=== PATIENT | male | born 1965 | race Two or more races ===

== ENCOUNTER 2017-08-22 04:51 | Emergency (ER) | payer OTHER | END 2017-08-22 05:39 | disposition home or self-care (01) | LOC: ER 04:51 | DX: H61.22 Impacted cerumen, left ear (principal); I10 Essential (primary) hypertension | CPT/HCPCS: 69209; 99282 ==

== ENCOUNTER 2018-03-01 20:17 | Inpatient (IN) | payer OTHER ==
[~2018-03-01] VITALS: Ht 175.3 cm; Wt 83.9 kg
[2018-03-01 21:03] LABS: BASO # 0.1 x10^3/uL (0.0-0.2); BASO % 1 % (0-3); EOS # 0.2 x10^3/uL (0.0-0.7); EOS % 2 % (0-3); HEMATOCRIT 41.8 % (39.0-53.0); HEMOGLOBIN 14.5 g/dL (13.0-17.5); LYMPH # 4.1 x10^3/uL (1.0-4.8); LYMPH % 49 % (24-48); MEAN CORPUSCULAR HEMOGLOBIN 32 pg (25-35); MEAN CORPUSCULAR HGB CONC 35 g/dL (31-37); MEAN CORPUSCULAR VOLUME 92 fL (79-100); MONO # 0.5 x10^3/uL (0.0-1.1); MONO % 6 % (0-9); NEUT # 3.4 x10^3uL (1.8-7.7); NEUT % 42 % (31-73); PLATELET COUNT 204 x10^3/uL (140-400); RED BLOOD COUNT 4.55 x10^6/uL (4.30-5.70); RED CELL DISTRIBUTION WIDTH 12.8 % (11.5-14.5); WHITE BLOOD COUNT 8.2 x10^3/uL (4.0-11.0)
--- NOTE | 2018-03-01 21:13 | PHYS DOC ---
Past Medical History Past Medical History: CAD, High Cholesterol, Hypertension Additional Past Surgical Histo: one stent placement 5 years ago Alcohol Use: Occasionally Drug Use: None Adult General Chief Complaint Chief Complaint: ALTERED MENTAL STATUS HPI HPI Patient is a 52 year old male who presents with difficulty with gait. Patient states he has been having some difficulty with ambulation over the last 4 days. He does not complain of focal weakness but does complain that it is difficult for him to walk and he tends to drift to one direction or the other while walking. He also describes some vertiginous symptoms. He noticed earlier today that he was having some memory difficulties. He was looking at some pictures with his daughter and seemed somehow confused or cannot remember events related to the photographs. Patient does have a known coronary artery disease history. He has not had a fever or chills. He does not have chest pain or palpitations. He denies focal weakness. He has had no upper respiratory infection lately. No recent travel. Review of Systems Review of Systems Constitutional: Denies fever or chills Eyes: Denies change in visual acuity HENT: Denies nasal congestion Respiratory: Denies cough or shortness of breath Cardiovascular: No additional information GI: Denies abdominal pain, nausea, vomiting : Denies dysuria Musculoskeletal: Denies back pain Integument: Denies rash or skin lesions Neurologic: Denies headache or focal weakness All other systems were reviewed and found to be within normal limits, except as documented in this note. Current Medications Current Medications Current Medications Medications (Trade) Dose Ordered Sig/Tarah Start Time Stop Time Status Last Admin Dose Admin Info (CONTRAST GIVEN -- Rx MONITORING) 1 each PRN DAILY PRN 03/01/18 22:30 03/03/18 22:29 Iohexol (Omnipaque 300 Mg/ml) 75 ml 1X ONCE 03/01/18 22:30 03/01/18 22:31 DC 03/01/18 22:44 75 ML Allergies Allergies Allergies Coded Allergies Type Severity Reaction Last Updated Verified No Known Drug Allergies 03/01/18 No Physical Exam Physical Exam Constitutional: Well developed, well nourished, no acute distress, non-toxic appearance HENT: Normocephalic, atraumatic, bilateral external ears normal, oropharynx moist Eyes: PERRLA, EOMI, conjunctiva normal, no discharge Neck: Normal range of motion, no tenderness, supple Cardiovascular:Heart rate regular rhythm, no murmur Lungs & Thorax: Bilateral breath sounds clear to auscultation Abdomen: Bowel sounds normal, soft, no tenderness Skin: Warm, dry, no erythema, no rash Extremities: No tenderness, no cyanosis, no clubbing Neurologic: Alert and oriented X 3, normal motor function, [id number] intact. EOMI without nystagmus. Psychologic: Affect normal Current Patient Data Vital Signs Vital Signs Date Time Temp Pulse Resp B/P (MAP) Pulse Ox O2 Delivery O2 Flow Rate FiO2 03/01/18 22:00 63 20 96 03/01/18 20:35 98.0 146/96 (113) Room Air 98.0 Lab Values Laboratory Tests Test 03/01/18 20:22 03/01/18 20:55 03/01/18 22:00 Glucose (Fingerstick) 95 mg/dL (70-99) White Blood Count 8.2 x10^3/uL (4.0-11.0) Red Blood Count 4.55 x10^6/uL (4.30-5.70) Hemoglobin 14.5 g/dL (13.0-17.5) Hematocrit 41.8 % (39.0-53.0) Mean Corpuscular Volume 92 fL (79-100) Mean Corpuscular Hemoglobin 32 pg (25-35) Mean Corpuscular Hemoglobin Concent 35 g/dL (31-37) Red Cell Distribution Width 12.8 % (11.5-14.5) Platelet Count 204 x10^3/uL (140-400) Neutrophils (%) (Auto) 42 % (31-73) Lymphocytes (%) (Auto) 49 % (24-48) H Monocytes (%) (Auto) 6 % (0-9) Eosinophils (%) (Auto) 2 % (0-3) Basophils (%) (Auto) 1 % (0-3) Neutrophils # (Auto) 3.4 x10^3uL (1.8-7.7) Lymphocytes # (Auto) 4.1 x10^3/uL (1.0-4.8) Monocytes # (Auto) 0.5 x10^3/uL (0.0-1.1) Eosinophils # (Auto) 0.2 x10^3/uL (0.0-0.7) Basophils # (Auto) 0.1 x10^3/uL (0.0-0.2) Prothrombin Time 13.5 SEC (11.7-14.0) Prothrombin Time INR 1.1 (0.8-1.1) PTT 34 SEC (24-38) Sodium Level 137 mmol/L (136-145) Potassium Level 3.8 mmol/L (3.5-5.1) Chloride Level 100 mmol/L (98-107) Carbon Dioxide Level 29 mmol/L (21-32) Anion Gap 8 (6-14) Blood Urea Nitrogen 17 mg/dL (8-26) Creatinine 1.0 mg/dL (0.7-1.3) Estimated GFR (Cockcroft-Gault) 78.2 Glucose Level 105 mg/dL (70-99) H Calcium Level 9.1 mg/dL (8.5-10.1) Troponin I Quantitative < 0.017 ng/mL (0.000-0.055) ZI-Xiy-E-Type Natriuretic Peptide 27 pg/mL (0-124) Urine Collection Type Unknown Urine Color Yellow Urine Clarity Clear Urine pH 6.5 Urine Specific [place] 1.015 Urine Protein Negative mg/dL (NEG-TRACE) Urine Glucose (UA) Negative mg/dL (NEG) Urine Ketones (Stick) Negative mg/dL (NEG) Urine Blood Trace (NEG) Urine Nitrite Negative (NEG) Urine Bilirubin Negative (NEG) Urine Urobilinogen Dipstick 0.2 mg/dL (0.2 mg/dL) Urine Leukocyte Esterase Negative (NEG) Urine RBC 1-2 /HPF (0-2) Urine WBC Occ /HPF (0-4) Urine Squamous Epithelial Cells Occ /LPF Urine Bacteria 0 /HPF (0-FEW) Laboratory Tests 03/01/18 20:55 Laboratory Tests 03/01/18 20:55 EKG EKG No STEMI Interpretation Time: 20:45 Radiology/Procedures Radiology/Procedures CTA head/neck: History: TIA Technique: Axial helical images were obtained of the head and neck after the intravenous administration of 75 mL of Omni 300 IV contrast. Multiplanar reconstruction was performed on an independent work station including MIP imaging and 3D angiographic imaging. Comparison: none CTA head with and without contrast. Findings: Brain: The carson and white matter appears symmetrical. There is no mass effect, extra-axial fluid collections or hydrocephalus. There is no gross bleed. Distal carotid arteries: normal caliber Vertebral basilar system normal Major cerebral arteries: normal Impression: no acute findings end impression CTA neck with contrast: Findings: Aortic arch and origin of great vessels: The right-sided artery originates after the left subclavian artery and passes posterior to the trachea and esophagus. The common carotid ovaries arise from a common trunk. Common carotid arteries: Right: normal Left: normal Internal carotid arteries: Right: Tortuous swinging towards the midline Left: normal Vertebral basilar system normal Impression: No significant stenosis. CT head w/o: No acute findings. Course & Med Decision Making Course & Med Decision Making Pertinent Labs and Imaging studies reviewed. (See chart for details) Patient was evaluated in the emergency department for some complaints. 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 The patient states he has had periods of time when he was unable to ambulate due to loss of balance. This includes at periods, unable to stand still. He does not complain of focal weakness. He had no nystagmus on exam and has no vertiginous symptoms. Workup in the ER including CT scan without contrast and CT angiography of the head and neck were both negative for acute findings. The patient seems to be a very reliable historian. His medication profile consistent only of atorvastatin and amlodipine. He does not smoke or use any illicit drugs. The source of his symptoms is unclear given his negative workup in the emergency department. Patient will be admitted to the hospital and neurology consultation requested. MRI at their recommendation if indicated for this patient. Thyroid studies are added to his lab panel along with B12 and folate. Prior to admission, all results are reviewed and discussed with the patient and all of his questions are answered. He is agreeable to the plan of care. I spoke to Dr. Garcia who is covering this evening for Dr. Fernandes. Patient is admitted to Dr. Fernandes. Dragon Disclaimer Dragon Disclaimer This electronic medical record was generated, in whole or in part, using a voice recognition dictation system. Departure Departure Referrals: JANE FERNANDES MD (PCP) DISHA NORRIS DO Mar 01, 2018 21:13
[2018-03-01 21:14] LABS: PROTHROMBIN TIME PATIENT 13.5 SEC (11.7-14.0)
[2018-03-01 21:17] LABS: CALCIUM 9.1 mg/dL (8.5-10.1); GFR 78.2; POTASSIUM 3.8 mmol/L (3.5-5.1)
--- NOTE | 2018-03-01 22:09 | RAD ---
Examination: CT HEAD WO CONTRAST History: loss of balance x 4 days Comparison/Correlation: None Findings: Topogram is unremarkable. Axial images of the head were obtained without contrast. Ventricles are normal size. No intracranial hemorrhage, midline shift, or mass effect. Bony structures are unremarkable. Impression: No intracranial hemorrhage. Electronically signed by: Pan Corrales MD (03/01/2018 10:06 PM) [facility]
[2018-03-01 22:11] LABS: BILIRUBIN,URINE NEGATIVE (NEG); CLARITY,URINE CLEAR; COLOR,URINE YELLOW; NITRITE,URINE NEGATIVE (NEG); PH,URINE 6.5; PROTEIN,URINE NEGATIVE (NEG-TRACE); UROBILINOGEN,URINE 0.2 mg/dL (0.2 mg/dL)
[2018-03-01 22:19] LABS: BACTERIA,URINE 0 /HPF (0-FEW); SQUAMOUS EPITHELIAL CELL,UR OCC /LPF; WBC,URINE OCC /HPF (0-4)
[2018-03-01] MEDS ORDERED: IOHEXOL 300 MG/ML 100ML VIAL. IV ONE (22:30)
[2018-03-01] MEDS ORDERED: CONTRAST GIVEN. MC PRN (22:30)
--- NOTE | 2018-03-01 23:34 | RAD ---
CTA head with and without and CTA neck with contrast History: TIA Technique: Axial helical images were obtained of the head and neck after the intravenous administration of 75 mL of Omni 300 IV contrast. Multiplanar reconstruction was performed on an independent work station including MIP imaging and 3D angiographic imaging. Comparison: none CTA head with and without contrast. Findings: Brain: The carson and white matter appears symmetrical. There is no mass effect, extra-axial fluid collections or hydrocephalus. There is no gross bleed. Distal carotid arteries: normal caliber Vertebral basilar system normal Major cerebral arteries: normal Impression: no acute findings end impression CTA neck with contrast: Findings: Aortic arch and origin of great vessels: The right-sided artery originates after the left subclavian artery and passes posterior to the trachea and esophagus. The common carotid ovaries arise from a common trunk. Common carotid arteries: Right: normal Left: normal Internal carotid arteries: Right: Tortuous swinging towards the midline Left: normal Vertebral basilar system normal Impression: No significant stenosis. PQRS Compliance Statement - Stenosis calculations for CT, MR and conventional angiography are based upon measurement of the distal ICA diameter in accordance with the NASCET methodology. Stenosis calculations for carotid ultrasound studies are derived from validated velocity criteria which are known to correlate with the NASCET methodology. PQRS Compliance Statement: One or more of the following individualized dose reduction techniques were utilized for this examination: 1. Automated exposure control 2. Adjustment of the mA and/or kV according to patient size 3. Use of iterative reconstruction technique Electronically signed by: Juan Carlos Lara III, MD (03/01/2018 11:31 PM) [facility]
[2018-03-02] MEDS ORDERED: ONDANSETRON PF 4 MG/2 ML VIAL. IV PRN (01:00)
[2018-03-02] MEDS ORDERED: ACETAMINOPHEN 325 MG TABLET. PO PRN ×2 (01:00→14:30)
[2018-03-02] MEDS ORDERED: ATOR20TA58 PO (02:05)
[2018-03-02] MEDS ORDERED: AMLO5TAB7 PO (02:05)
[2018-03-02 03:00] VITALS: BP 128/86
[2018-03-02] MEDS ORDERED: IOHEXOL 300 MG/ML 100ML VIAL. ONE (03:02)
[2018-03-02 03:26] LABS: FREE T4 1.14 ng/dL (0.76-1.46); THYROID STIM HORMONE (TSH) 2.928 uIU/mL (0.358-3.74)
[2018-03-02 07:00] VITALS: BP 141/111
--- NOTE | 2018-03-02 07:00 | EKG ---
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
--- NOTE | 2018-03-02 08:54 | PDOC2 ---
NEUROLOGY CONSULT Date of Admission Date of Admission DATE: 03/02/18 TIME: 08:47 Reason for Consult Reason for Consult: Dizziness and memory loss Referring Physician Referring Physician: Dr. Galvez Source Source: Caregiver (), Chart review, Patient History of Present Illness History of Present Illness The patient is a 52-year-old right-handed male who for the past week has had some dizziness and memory loss. He describes a disequilibrium feeling and denies vertigo or lightheadedness. He just feels unsteady on his feet. His says that he has been "walking like an old man." He also forgets conversations and feels like he is more confused. He has noted that his blood pressure has been up. There is no history of stroke, seizure, or head injury. His father had Alzheimer's. Past Medical History Cardiovascular: CAD, HTN, Hyperlipidemia Past Surgical History Past Surgical History: Other ( coronary stent) Family History Family History: Other ( father had Alzheimer's) Social History Social History , works in construction, no alcohol or tobacco Current Medications Current Medications Current Medications Iohexol (Omnipaque 300 Mg/ml) 75 ml 1X ONCE IV Last administered on 03/01/18at 22:44; Start 03/01/18 at 22:30; Stop 03/01/18 at 22:31; Status DC Info (CONTRAST GIVEN -- Rx MONITORING) 1 each PRN DAILY PRN MC SEE COMMENTS; Start 03/01/18 at 22:30; Stop 03/03/18 at 22:29 Ondansetron HCl (Zofran) 4 mg PRN Q8HRS PRN IV NAUSEA/VOMITING; Start 03/02/18 at 01:00; Stop 03/03/18 at 00:59 Acetaminophen (Tylenol) 650 mg PRN Q4HRS PRN PO FEVER; Start 03/02/18 at 01:00 ; Stop 03/03/18 at 00:59 Influenza Virus Vaccine (Afluria Trivalent [id number] Syringe) 0.5 ml ONCE ONCE VAX IM ; Start 03/02/18 at 09:00; Stop 03/02/18 at 09:01 Iohexol (Omnipaque 300 Mg/ml) 100 ml STK-MED ONCE .ROUTE ; Start 03/02/18 at 03: 02; Stop 03/02/18 at 03:03; Status DC Active Scripts Active Reported Atorvastatin Calcium 20 Mg Tablet 1 Tab PO DAILY Amlodipine Besylate 5 Mg Tablet 5 Mg PO DAILY Allergies Allergies: Coded Allergies: No Known Drug Allergies (Unverified , 03/01/18) ROS Review of System Negative for fevers, chills, weight loss, shortness of breath, chest pain, indigestion, hematochezia, melena, dysuria. Full 14-point review systems is negative. Physical Exam Physical Examination General: Well-developed, well-nourished, male, in no acute distress HEENT: Normocephalic andatraumatic. Temporal arteriespulsatile and nontender. Neck: Supple without bruit, no meningismus Musculoskeletal: Stability:see neurologic. Gait exam:see neurologic. Tone:see neurologic. Strength:see neurologic. Neurological: Mental Status:intact, orientation, memory, attention span/concentration, language, fund of knowledge normal. Cranial Nerves:Pupils equal and reactive to light, extraocular movements areintact, visual [place] are full to confrontation. Facial sensation is normal. There is no facial asymmetry. Vestibulo-ocular reflex is intact. Palate elevates and tongue protrudes in midline. All other cranial related problems are negative except as mentioned before.Reflexes:2+ and symmetric with flexor plantar responses. Motor:5/5 strength with normal tone and bulk. Coordination:Finger-nose finger and heel-to -franco testing are normal. Rapid alternating movements and fine finger movements are intact. Gait:is apraxic. Sensory:Normal pinprick, vibration, light touch, proprioception. Vitals VITALS Vital Signs Date Time Temp Pulse Resp B/P (MAP) Pulse Ox O2 Delivery O2 Flow Rate FiO2 03/02/18 07:00 98.4 71 16 141/111 (121) 93 Room Air 98.4 Labs Labs Laboratory Tests Test 03/01/18 20:22 03/01/18 20:55 03/01/18 22:00 Glucose (Fingerstick) 95 mg/dL (70-99) White Blood Count 8.2 x10^3/uL (4.0-11.0) Red Blood Count 4.55 x10^6/uL (4.30-5.70) Hemoglobin 14.5 g/dL (13.0-17.5) Hematocrit 41.8 % (39.0-53.0) Mean Corpuscular Volume 92 fL (79-100) Mean Corpuscular Hemoglobin 32 pg (25-35) Mean Corpuscular Hemoglobin Concent 35 g/dL (31-37) Red Cell Distribution Width 12.8 % (11.5-14.5) Platelet Count 204 x10^3/uL (140-400) Neutrophils (%) (Auto) 42 % (31-73) Lymphocytes (%) (Auto) 49 % (24-48) Monocytes (%) (Auto) 6 % (0-9) Eosinophils (%) (Auto) 2 % (0-3) Basophils (%) (Auto) 1 % (0-3) Neutrophils # (Auto) 3.4 x10^3uL (1.8-7.7) Lymphocytes # (Auto) 4.1 x10^3/uL (1.0-4.8) Monocytes # (Auto) 0.5 x10^3/uL (0.0-1.1) Eosinophils # (Auto) 0.2 x10^3/uL (0.0-0.7) Basophils # (Auto) 0.1 x10^3/uL (0.0-0.2) Prothrombin Time 13.5 SEC (11.7-14.0) Prothromb Time International Ratio 1.1 (0.8-1.1) Activated Partial Thromboplast Time 34 SEC (24-38) Sodium Level 137 mmol/L (136-145) Potassium Level 3.8 mmol/L (3.5-5.1) Chloride Level 100 mmol/L (98-107) Carbon Dioxide Level 29 mmol/L (21-32) Anion Gap 8 (6-14) Blood Urea Nitrogen 17 mg/dL (8-26) Creatinine 1.0 mg/dL (0.7-1.3) Estimated GFR (Cockcroft-Gault) 78.2 Glucose Level 105 mg/dL (70-99) Calcium Level 9.1 mg/dL (8.5-10.1) Troponin I Quantitative < 0.017 ng/mL (0.000-0.055) IQ-Ylm-Y-Type Natriuretic Peptide 27 pg/mL (0-124) Vitamin B12 Level 386 pg/mL (247-911) Thyroid Stimulating Hormone (TSH) 2.928 uIU/mL (0.358-3.74) Free Thyroxine 1.14 ng/dL (0.76-1.46) Urine Collection Type Unknown Urine Color Yellow Urine Clarity Clear Urine pH 6.5 Urine Specific [place] 1.015 Urine Protein Negative mg/dL (NEG-TRACE) Urine Glucose (UA) Negative mg/dL (NEG) Urine Ketones (Stick) Negative mg/dL (NEG) Urine Blood Trace (NEG) Urine Nitrite Negative (NEG) Urine Bilirubin Negative (NEG) Urine Urobilinogen Dipstick 0.2 mg/dL (0.2 mg/dL) Urine Leukocyte Esterase Negative (NEG) Urine RBC 1-2 /HPF (0-2) Urine WBC Occ /HPF (0-4) Urine Squamous Epithelial Cells Occ /LPF Urine Bacteria 0 /HPF (0-FEW) Laboratory Tests Test 03/01/18 20:22 03/01/18 20:55 03/01/18 22:00 Glucose (Fingerstick) 95 mg/dL (70-99) White Blood Count 8.2 x10^3/uL (4.0-11.0) Red Blood Count 4.55 x10^6/uL (4.30-5.70) Hemoglobin 14.5 g/dL (13.0-17.5) Hematocrit 41.8 % (39.0-53.0) Mean Corpuscular Volume 92 fL (79-100) Mean Corpuscular Hemoglobin 32 pg (25-35) Mean Corpuscular Hemoglobin Concent 35 g/dL (31-37) Red Cell Distribution Width 12.8 % (11.5-14.5) Platelet Count 204 x10^3/uL (140-400) Neutrophils (%) (Auto) 42 % (31-73) Lymphocytes (%) (Auto) 49 % (24-48) Monocytes (%) (Auto) 6 % (0-9) Eosinophils (%) (Auto) 2 % (0-3) Basophils (%) (Auto) 1 % (0-3) Neutrophils # (Auto) 3.4 x10^3uL (1.8-7.7) Lymphocytes # (Auto) 4.1 x10^3/uL (1.0-4.8) Monocytes # (Auto) 0.5 x10^3/uL (0.0-1.1) Eosinophils # (Auto) 0.2 x10^3/uL (0.0-0.7) Basophils # (Auto) 0.1 x10^3/uL (0.0-0.2) Prothrombin Time 13.5 SEC (11.7-14.0) Prothromb Time International Ratio 1.1 (0.8-1.1) Activated Partial Thromboplast Time 34 SEC (24-38) Sodium Level 137 mmol/L (136-145) Potassium Level 3.8 mmol/L (3.5-5.1) Chloride Level 100 mmol/L (98-107) Carbon Dioxide Level 29 mmol/L (21-32) Anion Gap 8 (6-14) Blood Urea Nitrogen 17 mg/dL (8-26) Creatinine 1.0 mg/dL (0.7-1.3) Estimated GFR (Cockcroft-Gault) 78.2 Glucose Level 105 mg/dL (70-99) Calcium Level 9.1 mg/dL (8.5-10.1) Troponin I Quantitative < 0.017 ng/mL (0.000-0.055) EV-Qjl-U-Type Natriuretic Peptide 27 pg/mL (0-124) Vitamin B12 Level 386 pg/mL (247-911) Thyroid Stimulating Hormone (TSH) 2.928 uIU/mL (0.358-3.74) Free Thyroxine 1.14 ng/dL (0.76-1.46) Urine Collection Type Unknown Urine Color Yellow Urine Clarity Clear Urine pH 6.5 Urine Specific [place] 1.015 Urine Protein Negative mg/dL (NEG-TRACE) Urine Glucose (UA) Negative mg/dL (NEG) Urine Ketones (Stick) Negative mg/dL (NEG) Urine Blood Trace (NEG) Urine Nitrite Negative (NEG) Urine Bilirubin Negative (NEG) Urine Urobilinogen Dipstick 0.2 mg/dL (0.2 mg/dL) Urine Leukocyte Esterase Negative (NEG) Urine RBC 1-2 /HPF (0-2) Urine WBC Occ /HPF (0-4) Urine Squamous Epithelial Cells Occ /LPF Urine Bacteria 0 /HPF (0-FEW) Images Images Head CT: Topogram is unremarkable. Axial images of the head were obtained without contrast. Ventricles are normal size. No intracranial hemorrhage, midline shift, or mass effect. Bony structures are unremarkable. Impression: No intracranial hemorrhage. CTA: CTA head with and without contrast. Findings: Brain: The carson and white matter appears symmetrical. There is no mass effect, extra-axial fluid collections or hydrocephalus. There is no gross bleed. Distal carotid arteries: normal caliber Vertebral basilar system normal Major cerebral arteries: normal Impression: no acute findings end impression CTA neck with contrast: Findings: Aortic arch and origin of great vessels: The right-sided artery originates after the left subclavian artery and passes posterior to the trachea and esophagus. The common carotid ovaries arise from a common trunk. Common carotid arteries: Right: normal Left: normal Internal carotid arteries: Right: Tortuous swinging towards the midline Left: normal Vertebral basilar system normal Impression: No significant stenosis. Assessment/Plan Assessment/Plan Impression: Disequilibrium, gait apraxia, feelings of memory loss, but otherwise a normal neurological exam. We need to rule out a stroke, but this should've shown up on the CT scan since the symptoms are present for a week. Consider hypertensive encephalopathy although his blood pressure isn't that high, early dementia, unlikely, metabolic disturbance that we have not uncovered yet, psychogenic causes. Recommendations: MRI of the brain Further studies depending on the results Rehabilitation screening Additional laboratory studies for common reversible causes of memory loss. Aim for discharge later today of studies are negative, follow-up in neurology clinic. Thank you for letting me help with the patient's care. BRIAN RIVAS MD Mar 02, 2018 08:54
[2018-03-02] MEDS ORDERED: ASPIRIN 325 MG TABLET PO ONE (10:15)
--- NOTE | 2018-03-02 10:27 | PDOC ---
Provider Note Provider Note Pt seen.H&P dictated. #[id number]. JANE FERNANDES MD Mar 02, 2018 10:27
[2018-03-02 11:00] VITALS: BP 122/83
[2018-03-02 11:00] LABS: ALBUMIN 3.9 g/dL (3.4-5.0); CHOLESTEROL/HDL RATIO 2.6; DIRECT BILIRUBIN 0.2 mg/dL (0.0-0.2); TOTAL BILIRUBIN 0.5 mg/dL (0.2-1.0)
--- NOTE | 2018-03-02 11:23 | HP ---
ADMIT DATE: 03/01/2018 PATIENT LOCATION: 4. REASON FOR ADMISSION TO THE HOSPITAL: 1. Little bit of altered mental status. 2. Ataxic gait. HISTORY OF PRESENT ILLNESS: The patient is a 52-year-old male patient with history of hypertension, hyperlipidemia, had coronary artery disease and had cardiac spasm as far as he remembers 5 years ago at [facility]. He was having problems with ambulation; when walking, he is kind of leaning towards the left side and ataxic gait. Family was concerned. He is also having problem with memory for the last one week, came to the Emergency Room. CT was negative. CT angiogram was negative, seen by Neurology and scheduled for MRI. PAST MEDICAL HISTORY: As mentioned above, has history of hypertension, hyperlipidemia, had a cardiac event 3 years ago and at that time had a cardiac catheterization. I believe it was more of a spasm rather than a blockage. PAST SURGICAL HISTORY: Cardiac catheterization and showed coronary spasm SOCIAL HISTORY: No history of smoking. Social alcohol. Denies any drugs. FAMILY HISTORY: Positive for hypertension, hyperlipidemia. REVIEW OF SYSTEMS: Cardiac farah, no chest pain, no shortness of breath, feels otherwise good, has only problems with memory, not able to grasp things lately and also when he is walking scan of feel like leaning to one side on the left side. Denies any spinning of the room. Rest of the 14-system was reviewed and negative. PHYSICAL EXAMINATION: GENERAL: The patient is pleasant, not in any distress. VITAL SIGNS: At the time of admission shows a temperature 98, pulse 75, respirations 20, blood pressure 146/96 and 98 on room air. HEENT: Head is atraumatic. Pupils equal. No nystagmus. Normal gaze. Oral cavity, no congestion. NECK: Supple. Thyroid not enlarged. JVD not elevated. CHEST: Symmetrical. CARDIOVASCULAR: S1, S2. LUNGS: Clear to auscultation. No wheezing. ABDOMEN: Soft. Bowel sounds present. No mass felt. EXTERNAL GENITALIA: No [place]. RECTAL EXAMINATION: Deferred. EXTREMITIES: No calf tenderness, no edema. Pulses 1+. NEUROLOGICAL EXAMINATION: Cranial nerves intact. Power 5/5, moving extremities. No focal deficits noted. The patient is ambulating in the hallway; once in a while, he starts leaning towards the left side. The patient remains closing his eyes. No ataxia, more than usual. No cerebellar signs. FINAL IMPRESSION: 1. Slight ataxia, possible mini stroke. 2. Hypertension. 3. Hyperlipidemia. 4. Problems with memory retention. 5. History of coronary artery disease, had a coronary spasm, if I believe, 3 years ago, PLAN: Plan at this time was admit to the hospital, had a CT head negative and CT angiogram was negative. MRI scheduled. Start on aspirin. Physical therapy and also, we will have Cardiology see the patient. Echocardiogram. Further recommendations. JANE FERNANDES MD DR: DANIEL/bindu JOB#: [id number] / [id number] YONATAN
[2018-03-02] MEDS: ATORVASTATIN CALCIUM 20 MG TABLET PO SCH (12:40)
[2018-03-02] MEDS: amLODIPine BESYLATE 5 MG TABLET PO SCH (12:42)
--- NOTE | 2018-03-02 12:48 | PDOC2 ---
RIKY REA SUPERVISOR LOADING 03/02/18 1248: CARDIAC CONSULT DATE OF CONSULT Date of Consult DATE: 03/02/18 TIME: 12:43 REASON FOR CONSULT Reason for Consult: CVA, hx of CAD REFERRING PHYSICIAN Referring Physician: Leonor SOURCE Source: Chart review, Patient PAST MEDICAL HISTORY Cardiovascular: CAD (noted significant vasopasm to LAD and RCA with significant reduction of stenosis to 20% and <20% respectively upon NTG infusion ), HTN, Hyperlipidemia PAST SURGICAL HISTORY Past Surgical History: Other ([facility] 05/27/2014 in [place]) FAMILY HISTORY Family History: Hypertension SOCIAL HISTORY Smoke: No ALCOHOL: none Drugs: None Lives: with Family CURRENT MEDICATIONS CURRENT MEDICATIONS Current Medications Medications (Trade) Dose Ordered Sig/Tarah Route PRN Reason Start Time Stop Time Status Last Admin Dose Admin Iohexol (Omnipaque 300 Mg/ml) 75 ml 1X ONCE IV 03/01/18 22:30 03/01/18 22:31 DC 03/01/18 22:44 Influenza Virus Vaccine (Afluria Trivalent [id number] Syringe) 0.5 ml ONCE ONCE VAX IM 03/02/18 09:00 03/02/18 09:01 DC 03/02/18 10:27 ALLERGIES ALLERGIES: Coded Allergies: No Known Drug Allergies (Unverified , 03/01/18) ROS Review of System 14 point ROS evaluated with pertinent positives noted per HPI PHYSICAL EXAM General: Alert, Oriented X3 HEENT: Atraumatic, Mucous membr. moist/pink Heart: Regular rate (SR), Normal S1, Normal S2, Other (2/6 systolic murmur to LLS border) Abdomen: Soft, No tenderness Extremities: No cyanosis, No edema Skin: No breakdown, No significant lesion Neuro: Normal speech, Sensation intact Psych/Mental Status: Mental status NL, Mood NL MUSCULOSKELETAL: Osteoarthritic changes both hands VITALS VITALS Vital Signs Date Time Temp Pulse Resp B/P (MAP) Pulse Ox O2 Delivery O2 Flow Rate FiO2 03/02/18 11:00 98.1 73 16 122/83 (96) 95 Room Air 98.1 LABS Lab: Laboratory Tests Test 03/01/18 20:22 03/01/18 20:55 03/01/18 22:00 03/02/18 09:35 Glucose (Fingerstick) 95 mg/dL (70-99) White Blood Count 8.2 x10^3/uL (4.0-11.0) Red Blood Count 4.55 x10^6/uL (4.30-5.70) Hemoglobin 14.5 g/dL (13.0-17.5) Hematocrit 41.8 % (39.0-53.0) Mean Corpuscular Volume 92 fL (79-100) Mean Corpuscular Hemoglobin 32 pg (25-35) Mean Corpuscular Hemoglobin Concent 35 g/dL (31-37) Red Cell Distribution Width 12.8 % (11.5-14.5) Platelet Count 204 x10^3/uL (140-400) Neutrophils (%) (Auto) 42 % (31-73) Lymphocytes (%) (Auto) 49 % (24-48) Monocytes (%) (Auto) 6 % (0-9) Eosinophils (%) (Auto) 2 % (0-3) Basophils (%) (Auto) 1 % (0-3) Neutrophils # (Auto) 3.4 x10^3uL (1.8-7.7) Lymphocytes # (Auto) 4.1 x10^3/uL (1.0-4.8) Monocytes # (Auto) 0.5 x10^3/uL (0.0-1.1) Eosinophils # (Auto) 0.2 x10^3/uL (0.0-0.7) Basophils # (Auto) 0.1 x10^3/uL (0.0-0.2) Prothrombin Time 13.5 SEC (11.7-14.0) Prothromb Time International Ratio 1.1 (0.8-1.1) Activated Partial Thromboplast Time 34 SEC (24-38) Sodium Level 137 mmol/L (136-145) Potassium Level 3.8 mmol/L (3.5-5.1) Chloride Level 100 mmol/L (98-107) Carbon Dioxide Level 29 mmol/L (21-32) Anion Gap 8 (6-14) Blood Urea Nitrogen 17 mg/dL (8-26) Creatinine 1.0 mg/dL (0.7-1.3) Estimated GFR (Cockcroft-Gault) 78.2 Glucose Level 105 mg/dL (70-99) Calcium Level 9.1 mg/dL (8.5-10.1) Troponin I Quantitative < 0.017 ng/mL (0.000-0.055) IA-Qrl-O-Type Natriuretic Peptide 27 pg/mL (0-124) Vitamin B12 Level 386 pg/mL (247-911) 348 pg/mL (247-911) Thyroid Stimulating Hormone (TSH) 2.928 uIU/mL (0.358-3.74) Free Thyroxine 1.14 ng/dL (0.76-1.46) Urine Collection Type Unknown Urine Color Yellow Urine Clarity Clear Urine pH 6.5 Urine Specific [place] 1.015 Urine Protein Negative mg/dL (NEG-TRACE) Urine Glucose (UA) Negative mg/dL (NEG) Urine Ketones (Stick) Negative mg/dL (NEG) Urine Blood Trace (NEG) Urine Nitrite Negative (NEG) Urine Bilirubin Negative (NEG) Urine Urobilinogen Dipstick 0.2 mg/dL (0.2 mg/dL) Urine Leukocyte Esterase Negative (NEG) Urine RBC 1-2 /HPF (0-2) Urine WBC Occ /HPF (0-4) Urine Squamous Epithelial Cells Occ /LPF Urine Bacteria 0 /HPF (0-FEW) Erythrocyte Sedimentation Rate 2 (0-15) Total Bilirubin 0.5 mg/dL (0.2-1.0) Direct Bilirubin 0.2 mg/dL (0.0-0.2) Aspartate Amino Transf (AST/SGOT) 22 U/L (15-37) Alanine Aminotransferase (ALT/SGPT) 33 U/L (16-63) Alkaline Phosphatase 56 U/L (46-116) Total Protein 7.0 g/dL (6.4-8.2) Albumin 3.9 g/dL (3.4-5.0) Triglycerides Level 126 mg/dL (0-150) Cholesterol Level 118 mg/dL (0-200) LDL Cholesterol, Calculated 47 mg/dL (0-100) VLDL Cholesterol, Calculated 25 mg/dL (0-40) Non-HDL Cholesterol Calculated 72 mg/dL (0-129) HDL Cholesterol 46 mg/dL (40-60) Cholesterol/HDL Ratio 2.6 ASSESSMENT/PLAN ASSESSMENT/PLAN 1. 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 Chronic RBBB: reviewed past EKG. 4. HTN: controlled 5. HLP: on goal 6. CAD: mild nonobstructive LHC 05/2014. Noted with significant vasopasm relieved by intraluminal NTG and was given norvasc at that time. Recommendations 1. TTE, continued statin and ASA and norvasc. Awaiting MRI 2. Follow up in office in 4 weeks. 3. notable for recent ear impaction and persistent allergic rhinitis. Will need ear exam for any associated reimpaction or otitis issue, defer to PCP YUMIKO MATA MD 03/05/18 2144: CARDIAC CONSULT ASSESSMENT/PLAN ASSESSMENT/PLAN Late entry for 03/02/2018 Pt. seen and examined. Agree with above DISPUTE COORDINATOR note. 52 y.o male without significant chest pain. Possible CVA syndrome. Per neurology notes needs loop recorder if labs are not revealing. Will plan for outpt f/u. Thanks RIKY REA APRN Mar 02, 2018 12:48 YUMIKO MATA MD Mar 05, 2018 21:44
--- NOTE | 2018-03-02 14:23 | RAD ---
MRI Brain without contrast History: Dizziness, memory loss, hypertension Technique: Multiplanar, multisequential noncontrast MR imaging was performed of the brain. Contrast: None Comparison: None Findings: There are foci of restricted diffusion centered in the caudate heads bilaterally, also some subtle diffusion signal abnormality of the anterior left lentiform nucleus. There is also mild increased diffusion signal of the left parasagittal parietal lobe extending posteriorly near the left occipital forceps with cortical involvement although not as hypointense on ADC map, some associated T2 and FLAIR hyperintense signal. There is also mild T2 and FLAIR hyperintense signal associated with the bilateral caudate heads. There is no midline shift. Ventricular size is within normal limits. There is no significant hemosiderin deposition of the brain parenchyma. There is preservation of the major arterial intracranial flow voids at the skull base. Mastoid air cells are aerated. There is negligible left maxillary sinus mucosal thickening, also minimal ethmoid air cell mucosal thickening greater anteriorly. There are probable complex mucous retention cysts of the maxillary sinuses bilaterally. Impression: 1. There are foci of restricted diffusion centered in the caudate heads bilaterally concerning for more recent infarcts, also probable tiny of the left posterior lemus radiata. There is also more subtle diffusion signal change of the left parasagittal parietal lobe with cortical involvement although not as hypointense on ADC map and subtle associated FLAIR hyperintense signal, consideration of posterior reversible encephalopathy syndrome in the appropriate clinical setting although atypical distribution given unilateral involvement. Sequela of encephalitis is not excluded by imaging although also would be considered atypical given the findings of the caudate heads. Critical result: Findings discussed with BRIAN RIVAS at 03/02/2018 2:16 PM. Electronically signed by: Carl Lora MD (03/02/2018 2:19 PM) [facility]
[2018-03-02] MEDS ORDERED: ACETAMINOPHEN 650 MG SUPP.RECT. PR PRN (14:30)
[2018-03-02] MEDS ORDERED: ASPIRIN 300 MG SUPP.RECT PR PRN (14:30)
[2018-03-02 15:00] VITALS: BP 134/86
[2018-03-02] MEDS ORDERED: ENOXAPARIN 40 MG/0.4 ML SYRINGE. SQ SCH (15:00)
[2018-03-02] MEDS ORDERED: GADOBUTROL 10 MMOL/10 ML VIAL IV ONE (15:45)
--- NOTE | 2018-03-02 16:58 | RAD ---
Examination: ANGIOGRAPHY NECK WO/W CONTRAST History: CVA, DIZZINESS X 2 DAYS, NO SX HX, PRIOR MRI, 8ML GADAVIST, IF CRITICAL CALL RESULTS TO [facility] AT [phone] Comparison/Correlation: CTA head without and with contrast, CTA neck with contrast dated 03/01/2018 Findings: Following 8 cc Gadavist IV, MRA of the neck was performed. Sagittal and coronal series were provided. 2-D hyvw-sq-[id number] images were provided. MIP 3-D volume rendered images were provided. Motion limits evaluation. Evaluation in particular is limited at the level of the aortic arch and slightly more superior. Assessment of the origins of the carotid arteries and vertebral arteries is limited. 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 Denies common carotid arteries and internal carotid arteries are of normal patency. No significant stenosis identified. No significant atheromatous involvement identified. Vertebral arteries are patent and unremarkable. Tortuosity of the superior aspect of the right internal carotid artery is notable. Basilar artery is unremarkable. Partially visualized [place] is similar to prior exam. This exam is not optimized for evaluation of the cerebral arterial stricture. Impression: No significant stenosis involving the visualized carotid and vertebral arteries on this limited exam. Electronically signed by: Pan Corrales MD (03/02/2018 4:55 PM) [facility]
--- NOTE | 2018-03-02 17:10 | CARD ---
MR#: [id number] Date of Study: 03/02/2018 Ordering Physician: JANE FERNANDES, Referring Physician: JANE FERNANDES, Tech: Najma Alvarado [facility] [place] APPROVED REPORT EXAM: Two-dimensional and M-mode echocardiogram with Doppler and color Doppler. Other Information Quality : Good Rhythm : NSR INDICATION Loss of Balance 2D DIMENSIONS Left Atrium(2D)2.6 (1.6-4.0cm)IVSd1.1 (0.7-1.1cm) Aortic Root(2D)2.8 (2.0-3.7cm)LVDd4.7 (3.9-5.9cm) LVOT Diameter2.1 (1.8-2.4cm)PWd1.1 (0.7-1.1cm) IVSs1.4 (0.8-1.2cm)LVDs2.8 (2.5-4.0cm) FS (%) 40.1 %PWs1.7 (0.8-1.2cm) SV71.9 mlLVEF(%)70.8 (>50%) Aortic Valve AoV Peak David.128.3cm/sAoV VTI26.1cm AO Peak GR.6.6mmHgLVOT Peak David.90.4cm/s LVOT VTI 18.60cmAO Mean GR.4mmHg TERRY (VMAX)1.48ch7FLA (VTI)2.41cm2 Mitral Valve MV E Kpjbcuom05.7cm/sMV DECEL LORW610ws MV A Zzruqoxi43.8cm/sMV YCL29gg E/A Ratio1.1MVA (PHT)2.53cm2 TDI E/Lateral E'7.9E/Medial E'8.2 Pulmonary Valve PV Peak Bghmzuiz70.3cm/sPV Peak Grad.4mmHg Tricuspid Valve TR P. Ftiqucct374ul/sRAP LIYDBGIF6cgDz TR Peak Gr.28zlKeMOLA36riEs Pulmonary Vein S1 Udcgdlmv04.7cm/sD2 Fsbcoosk19.2cm/s PVa yszozflp539kmmm LEFT VENTRICLE The left ventricle is normal size. There is borderline to mild concentric left ventricular hypertroph y. The left ventricular systolic function is normal. The Ejection Fraction is 65-70%. There is normal LV segmental wall motion. Transmitral Doppler flow pattern is Grade I-abnormal relaxation pattern. RIGHT VENTRICLE The right ventricle is normal size. There is normal right ventricular wall thickness. The right ventr icular systolic function is normal. ATRIA The left atrium size is normal. The right atrium size is normal. The interatrial septum is intact wit h no evidence for an atrial septal defect or patent foramen ovale as noted on 2-D or Doppler imaging. AORTIC VALVE The aortic valve is trileaflet. The aortic valve is normal in structure and function. Doppler and Col or Flow revealed trace aortic regurgitation. There is no significant aortic valvular stenosis. MITRAL VALVE The mitral valve is normal in structure and function. There is no evidence of mitral valve prolapse. There is no mitral valve stenosis. Doppler and Color-flow revealed trace mitral regurgitation. TRICUSPID VALVE The tricuspid valve is normal in structure and function. Doppler and Color Flow revealed trace tricus pid regurgitation. The PA pressure was estimated at 26 mmHg. There is no tricuspid valve prolapse or vegetation. There is no tricuspid valve stenosis. PULMONIC VALVE Pulmonic valve not well visualized. Doppler and Color Flow revealed no pulmonic valvular regurgitatio n. There is no pulmonic valvular stenosis. GREAT VESSELS The aortic root is normal in size. The ascending aorta is normal in size. PERICARDIAL EFFUSION There is no evidence of significant pericardial effusion. Critical Notification Critical Value: No <Conclusion> The left ventricular systolic function is normal. The Ejection Fraction is 65-70%. There is normal LV segmental wall motion. Transmitral Doppler flow pattern is Grade I-abnormal relaxation pattern. Trace mitral regurgitation. Trace tricuspid regurgitation. The PA pressure was estimated at 26 mmHg. There is no evidence of significant pericardial effusion. Signed by : Victor Manuel Shook, Electronically Approved : 03/02/2018 17:10:08
[2018-03-02 19:00] VITALS: BP 135/92
[2018-03-02 19:17] LABS: HEMOGLOBIN A1C 5.4 % (4.8-5.6)
[2018-03-02 23:00] VITALS: BP 135/87
[2018-03-03 03:00] VITALS: BP 135/83
[2018-03-03 07:00] VITALS: BP 129/85
[2018-03-03] MEDS ORDERED: ASPIRIN ENTERIC COATED 325 MG TABLET.DR. PO SCH (08:00)
[2018-03-03] MEDS ORDERED: ASPIRIN 325 MG TABLET PO SCH (08:00)
[2018-03-03] MEDS: ATORVASTATIN CALCIUM 20 MG TABLET PO SCH (08:47)
[2018-03-03] MEDS: amLODIPine BESYLATE 5 MG TABLET PO SCH (08:48)
[2018-03-03] MEDS ORDERED: ASPI-612 PO (08:51)
[2018-03-03 11:00] VITALS: BP 129/86
--- NOTE | 2018-03-03 11:53 | PDOC ---
PROGRESS NOTES Subjective Subjective no new problems Objective Objective Vital Signs Date Time Temp Pulse Resp B/P (MAP) Pulse Ox O2 Delivery O2 Flow Rate FiO2 03/03/18 11:00 98.0 74 16 129/86 (100) 93 Room Air 98.0 Intake and Output 03/03/18 07:00 Intake Total 1860 ml Balance 1860 ml Intake Oral 1860 ml # Voids 5 Physical Exam Abdomen: Soft, No tenderness Heart: Regular rate (SR), Normal S1, Normal S2, Other (2/6 systolic murmur to LLS border) Extremities: No cyanosis, No edema General: Alert, Oriented X3 HEENT: Atraumatic, Mucous membr. moist/pink MUSCULOSKELETAL: Osteoarthritic changes both hands Neuro: Normal speech, Sensation intact Psych/Mental Status: Mental status NL, Mood NL Skin: No breakdown, No significant lesion Diagnosis Problem List Problems Medical Problems: (1) Gait disturbance Status: Acute (2) Memory loss Status: Acute Assessment Assessment Problems Medical Problems: (1) Gait disturbance Status: Acute (2) Memory loss Status: Acute FINAL IMPRESSION: 1. Slight ataxia, possible mini stroke.MRI showed brain infarct in caudate area 2. Hypertension. 3. Hyperlipidemia. 4. Problems with memory retention. 5. History of coronary artery disease, had a coronary spasm, if I believe, 3 years ago. PLAN: ASA 325 mg. chol good control on meds carotid neg echo good lvf d/c home today/ out pt PT. continue cardiac meds Plan at this time was admit to the hospital, had a CT head negative and CT angiogram was negative. MRI scheduled. Start on aspirin. Physical therapy and also, we will have Cardiology see the patient. Echocardiogram. Further recommendations. Plan Plan of Care Problems Medical Problems: (1) Gait disturbance Status: Acute (2) Memory loss Status: Acute Comment Review of Relevant I have reviewed the following items rex (where applicable) has been applied. Medications Current Medications Acetaminophen (Tylenol Supp) 650 mg PRN Q4HRS PRN [place] TEMP > 100.4F; Start 03/02 at 14:30 Acetaminophen (Tylenol) 650 mg PRN Q6HRS PRN PO TEMP > 100.4F; Start 03/02/18 at 14:30 Aspirin (Aspirin) 300 mg PRN DAILY PRN NH IF UNABLE TO TAKE PO; Start 03/02/18 at 14:30 Aspirin (Sukumar Aspirin) 325 mg DAILYWBKFT PO ; Start 03/03/18 at 08:00; Stop at 08:00; Status DC Aspirin (Ecotrin) 325 mg DAILYWBKFT PO Last administered on 03/03/18at 08:47; Start 03/03/18 at 08:00 Atorvastatin Calcium (Lipitor) 20 mg DAILY PO Last administered on 03/03/18at 08 :47; Start 03/02/18 at 13:00 Enoxaparin Sodium (Lovenox 40mg Syringe) 40 mg Q24H SQ Last administered on 03/02/18at 18:00; Start 03/02/18 at 15:00 Gadobutrol (Gadavist) 8 mmol 1X ONCE IV Last administered on 03/02/18at 15:45; Start 03/02/18 at 15:45; Stop 03/02/18 at 15:46; Status DC Vitals/I & O Vital Sign - Last 24 Hours 03/02/18 03/02/18 03/02/18 03/02/18 12:42 15:00 19:00 19:30 Temp 98.2 98.4 98.2 98.4 Pulse 73 67 66 Resp 16 20 B/P (MAP) 122/83 134/86 (102) 135/92 (106) Pulse Ox 93 95 O2 Delivery Room Air Room Air Room Air 03/02/18 03/03/18 03/03/18 03/03/18 23:00 03:00 07:00 08:00 Temp 98.2 98.6 98.3 98.2 98.6 98.3 Pulse 68 65 74 Resp 20 20 16 B/P (MAP) 135/87 (103) 135/83 (100) 129/85 (100) Pulse Ox 91 94 97 O2 Delivery Room Air Room Air Room Air Room Air 03/03/18 03/03/18 08:48 11:00 Temp 98.0 98.0 Pulse 74 74 Resp 16 B/P (MAP) 129/85 129/86 (100) Pulse Ox 93 O2 Delivery Room Air Intake and Output 03/02/18 03/02/18 03/03/18 15:00 23:00 07:00 Intake Total 1200 ml 360 ml 300 ml Balance 1200 ml 360 ml 300 ml JANE FERNANDES MD Mar 03, 2018 11:53
--- NOTE | 2018-03-03 13:23 | PDOC ---
PROGRESS NOTES Assessment Problems Medical Problems: (1) Gait disturbance Status: Acute Patient is a pleasant 52-year-old man who has sustained a small ischemic events in multiple vascular distributions. This has caused his gait disturbance as well as cognitive changes. There was no imaging evidence of vasculitis. Sedimentation rate was normal. He did not have any evidence for vascular narrowing in the neck or head. There was no obvious cardioembolic source on echocardiogram. He has not had evidence of atrial fibrillation. (2) Memory loss Status: Acute As above Plan I will order labs looking for an inflammatory process and hypercoagulable state. After the labs are drawn he may be dismissed. I would recommend aspirin 81 mg and Plavix 75 mg daily. After 1 month he may discontinue the aspirin. He will need to follow-up with Dr. Rondon regarding the labs. If laboratory investigation is not revealing and a loop recorder would be a consideration to evaluate for occult atrial fibrillation. He needs to head to the emergency room immediately should he have the onset of new neurologic symptoms. I discussed all of my findings with the patient and family. I answered all of their questions. Time spent, 30 minutes Objective Vital Signs Date Time Temp Pulse Resp B/P (MAP) Pulse Ox O2 Delivery O2 Flow Rate FiO2 03/03/18 11:00 98.0 74 16 129/86 (100) 93 Room Air 98.0 Intake and Output 03/03/18 07:00 Intake Total 1860 ml Balance 1860 ml Intake Oral 1860 ml # Voids 5 PHYSICAL EXAM He was alert, awake and cooperative. The speech was fluent and clear. He had a good fund of recent and remote knowledge. Attention and concentration was intact. He was well-groomed and well-nourished. He was fully oriented. Examination of the cranial nerves revealed visual hudson were full to confrontation. Extraocular movements were intact. The eyes were conjugate. Pursuit movements were smooth and saccadic movements were without dysmetria. The pupils were [default value] millimeters and reacted to light. There was no afferent pupillary defect. Facial sensation was intact. The muscles of mastication and facial expression were powerful symmetrically. Hearing was intact to finger rub. The palate arch symmetrically and the tongue was midline with full range of motion. Sternocleidomastoid and trapezius were powerful bilaterally. Muscle bulk and tone was normal. There was no arm drift or abnormal movement. The power was full and symmetric in the upper and lower extremities.. The toes were downgoing bilaterally. Coordination testing with finger to nose, heel to franco, fine motor and rapid alternating movements was well performed. The sensory examination was intact to pain, light touch, proprioception, graphesthesia, cold thermal and vibration. There was no extinction to double simultaneous stimulation. The gait was of a normal base and unsteady walk. She was able to heel, toe, and tandem walk. The Romberg stance was negative. There was no edema or cyanosis of the extremities. Review of Relevant I have reviewed the following items rex (where applicable) has been applied. Labs Laboratory Tests Test 03/01/18 20:22 03/01/18 20:55 03/01/18 22:00 03/02/18 09:35 Glucose (Fingerstick) 95 mg/dL (70-99) White Blood Count 8.2 x10^3/uL (4.0-11.0) Red Blood Count 4.55 x10^6/uL (4.30-5.70) Hemoglobin 14.5 g/dL (13.0-17.5) Hematocrit 41.8 % (39.0-53.0) Mean Corpuscular Volume 92 fL (79-100) Mean Corpuscular Hemoglobin 32 pg (25-35) Mean Corpuscular Hemoglobin Concent 35 g/dL (31-37) Red Cell Distribution Width 12.8 % (11.5-14.5) Platelet Count 204 x10^3/uL (140-400) Neutrophils (%) (Auto) 42 % (31-73) Lymphocytes (%) (Auto) 49 % (24-48) Monocytes (%) (Auto) 6 % (0-9) Eosinophils (%) (Auto) 2 % (0-3) Basophils (%) (Auto) 1 % (0-3) Neutrophils # (Auto) 3.4 x10^3uL (1.8-7.7) Lymphocytes # (Auto) 4.1 x10^3/uL (1.0-4.8) Monocytes # (Auto) 0.5 x10^3/uL (0.0-1.1) Eosinophils # (Auto) 0.2 x10^3/uL (0.0-0.7) Basophils # (Auto) 0.1 x10^3/uL (0.0-0.2) Prothrombin Time 13.5 SEC (11.7-14.0) Prothromb Time International Ratio 1.1 (0.8-1.1) Activated Partial Thromboplast Time 34 SEC (24-38) Sodium Level 137 mmol/L (136-145) Potassium Level 3.8 mmol/L (3.5-5.1) Chloride Level 100 mmol/L (98-107) Carbon Dioxide Level 29 mmol/L (21-32) Anion Gap 8 (6-14) Blood Urea Nitrogen 17 mg/dL (8-26) Creatinine 1.0 mg/dL (0.7-1.3) Estimated GFR (Cockcroft-Gault) 78.2 Glucose Level 105 mg/dL (70-99) Hemoglobin A1c 5.4 % (4.8-5.6) Calcium Level 9.1 mg/dL (8.5-10.1) Troponin I Quantitative < 0.017 ng/mL (0.000-0.055) IE-Muy-S-Type Natriuretic Peptide 27 pg/mL (0-124) Vitamin B12 Level 386 pg/mL (247-911) 348 pg/mL (247-911) Thyroid Stimulating Hormone (TSH) 2.928 uIU/mL (0.358-3.74) Free Thyroxine 1.14 ng/dL (0.76-1.46) Urine Collection Type Unknown Urine Color Yellow Urine Clarity Clear Urine pH 6.5 Urine Specific [place] 1.015 Urine Protein Negative mg/dL (NEG-TRACE) Urine Glucose (UA) Negative mg/dL (NEG) Urine Ketones (Stick) Negative mg/dL (NEG) Urine Blood Trace (NEG) Urine Nitrite Negative (NEG) Urine Bilirubin Negative (NEG) Urine Urobilinogen Dipstick 0.2 mg/dL (0.2 mg/dL) Urine Leukocyte Esterase Negative (NEG) Urine RBC 1-2 /HPF (0-2) Urine WBC Occ /HPF (0-4) Urine Squamous Epithelial Cells Occ /LPF Urine Bacteria 0 /HPF (0-FEW) Erythrocyte Sedimentation Rate 2 (0-15) Total Bilirubin 0.5 mg/dL (0.2-1.0) Direct Bilirubin 0.2 mg/dL (0.0-0.2) Aspartate Amino Transf (AST/SGOT) 22 U/L (15-37) Alanine Aminotransferase (ALT/SGPT) 33 U/L (16-63) Alkaline Phosphatase 56 U/L (46-116) Total Protein 7.0 g/dL (6.4-8.2) Albumin 3.9 g/dL (3.4-5.0) Triglycerides Level 126 mg/dL (0-150) Cholesterol Level 118 mg/dL (0-200) LDL Cholesterol, Calculated 47 mg/dL (0-100) VLDL Cholesterol, Calculated 25 mg/dL (0-40) Non-HDL Cholesterol Calculated 72 mg/dL (0-129) HDL Cholesterol 46 mg/dL (40-60) Cholesterol/HDL Ratio 2.6 Medications Current Medications Iohexol (Omnipaque 300 Mg/ml) 75 ml 1X ONCE IV Last administered on 03/01/18at 22:44; Start 03/01/18 at 22:30; Stop 03/01/18 at 22:31; Status DC Info (CONTRAST GIVEN -- Rx MONITORING) 1 each PRN DAILY PRN MC SEE COMMENTS; Start 03/01/18 at 22:30; Stop 03/03/18 at 22:29 Ondansetron HCl (Zofran) 4 mg PRN Q8HRS PRN IV NAUSEA/VOMITING; Start 03/02/18 at 01:00; Stop 03/03/18 at 00:59; Status DC Acetaminophen (Tylenol) 650 mg PRN Q4HRS PRN PO FEVER; Start 03/02/18 at 01:00 ; Stop 03/02/18 at 14:45; Status DC Influenza Virus Vaccine (Afluria Trivalent [id number] Syringe) 0.5 ml ONCE ONCE VAX IM Last administered on 03/02/18at 10:27; Start 03/02/18 at 09:00; Stop 03/02/18 at 09:01; Status DC Iohexol (Omnipaque 300 Mg/ml) 100 ml STK-MED ONCE .ROUTE ; Start 03/02/18 at 03: 02; Stop 03/02/18 at 03:03; Status DC Amlodipine Besylate (Norvasc) 5 mg DAILY PO Last administered on 03/03/18at 08: 48; Start 03/02/18 at 11:00 Atorvastatin Calcium (Lipitor) 20 mg DAILY PO Last administered on 03/03/18at 08 :47; Start 03/02/18 at 13:00 Aspirin (Sukumar Aspirin) 325 mg 1X ONCE PO Last administered on 03/02/18at 12:40 ; Start 03/02/18 at 10:15; Stop 03/02/18 at 10:29; Status DC Aspirin (Sukumar Aspirin) 325 mg DAILYWBKFT PO ; Start 03/03/18 at 08:00; Stop at 08:00; Status DC Enoxaparin Sodium (Lovenox 40mg Syringe) 40 mg Q24H SQ Last administered on 03/02/18at 18:00; Start 03/02/18 at 15:00 Acetaminophen (Tylenol) 650 mg PRN Q6HRS PRN PO TEMP > 100.4F; Start 03/02/18 at 14:30 Acetaminophen (Tylenol Supp) 650 mg PRN Q4HRS PRN MN TEMP > 100.4F; Start 03/02 at 14:30 Aspirin (Ecotrin) 325 mg DAILYWBKFT PO Last administered on 03/03/18at 08:47; Start 03/03/18 at 08:00 Aspirin (Aspirin) 300 mg PRN DAILY PRN MN IF UNABLE TO TAKE PO; Start 03/02/18 at 14:30 Gadobutrol (Gadavist) 8 mmol 1X ONCE IV Last administered on 03/02/18at 15:45; Start 03/02/18 at 15:45; Stop 03/02/18 at 15:46; Status DC Active Scripts Active Reported Aspirin Ec (Aspirin) 81 Mg Tablet. 1 Tab PO DAILY Atorvastatin Calcium 20 Mg Tablet 1 Tab PO DAILY Amlodipine Besylate 5 Mg Tablet 5 Mg PO DAILY Vitals/I & O Vital Sign - Last 24 Hours 03/02/18 03/02/18 03/02/18 03/02/18 15:00 19:00 19:30 23:00 Temp 98.2 98.4 98.2 98.2 98.4 98.2 Pulse 67 66 68 Resp 16 20 20 B/P (MAP) 134/86 (102) 135/92 (106) 135/87 (103) Pulse Ox 93 95 91 O2 Delivery Room Air Room Air Room Air Room Air 03/03/18 03/03/18 03/03/18 03/03/18 03:00 07:00 08:00 08:48 Temp 98.6 98.3 98.6 98.3 Pulse 65 74 74 Resp 20 16 B/P (MAP) 135/83 (100) 129/85 (100) 129/85 Pulse Ox 94 97 O2 Delivery Room Air Room Air Room Air 03/03/18 11:00 Temp 98.0 98.0 Pulse 74 Resp 16 B/P (MAP) 129/86 (100) Pulse Ox 93 O2 Delivery Room Air Intake and Output 03/02/18 03/02/18 03/03/18 15:00 23:00 07:00 Intake Total 1200 ml 360 ml 300 ml Balance 1200 ml 360 ml 300 ml Images Imaging studies were reviewed. CT scan of the brain was performed March 01, 2018 which did not reveal an acute intracranial abnormality. CT angiogram of the head and neck were performed. This was a normal study not revealing evidence of aneurysm, stenosis or thrombus. There was no beading appearance. The MRI brain was abnormal. This revealed evidence of recent stroke in the caudate heads bilaterally. There was also evidence in the left parasagittal parietal lobe with cortical involvement and subtle changes on flair sequence. Echocardiogram revealed a normal ejection fraction with grade 1 diastolic dysfunction. There was no major valvular disease or evidence of a cardioembolic source. PRISCILA WATERS MD Mar 03, 2018 13:23
[2018-03-03] MEDS ORDERED: CLOP75TA PO (13:41)
--- NOTE | 2018-03-05 09:47 | PDOC ---
Provider Note Provider Note Discharge summary dictated. #[id number]. JANE FERNANDES MD Mar 05, 2018 09:47
--- NOTE | 2018-03-05 10:39 | DS ---
DATE OF DISCHARGE: 03/03/2018 REASON FOR ADMISSION TO THE HOSPITAL: 1. Ataxia. 2. Memory problems. CONSULTATIONS: 1. Dr. Rondon. 2. Cardiology, Dr. Shook. PROCEDURES DONE: 1. Echocardiogram. 2. CT head. 3. CT angiogram of the head. 4. MRI of the brain. 5. Carotid Doppler. HOSPITAL COURSE: The patient is a 52-year-old male with history of coronary artery disease with cardiac spasm by cardiac catheterization 3 years ago. He is on hypertension, baby aspirin. He was having problem with memory loss for a couple of weeks and 24 hours prior to admission was having problem with ataxic gait, was brought to the hospital. CT head was negative. CT angiogram of the head was negative. Carotid arteriogram was negative. Had echocardiogram, showed good left ventricular function, 65-75% and brain MRI showed a possible infarct in the caudate heads, left posterior lemus radiata. The patient came after 24 hours of symptoms, no TPA was given. The patient was placed on Plavix and aspirin. Sed rate was 2. Cholesterol 118, LDL 47. B12 was normal. A1c 5.4. EKG negative for ischemia. Normal sinus rhythm. Echocardiogram showed good left ventricular function. FINAL IMPRESSION: 1. Ataxic gait, probably it could be subacute infarct at the caudate nucleus and coronary radiate. 2. Memory problems going on for a while. 3. Coronary artery spasm. 4. Hypertension. 5. Hyperlipidemia. PLAN: At this time, the patient presented to the Emergency Room more than 12 hours after his symptoms, TPA was not given. The patient was placed on Plavix and aspirin. Continue cardiac medications and follow in the office, probably may need an event monitor down the road. His cholesterol is at goal. Blood pressure is under control. Not a smoker. Discharged on aspirin 81 mg and Plavix 75 mg daily. JANE FERNANDES MD DR: DANIEL/bindu JOB#: [id number] / [id number]
[2018-03-06 15:34] LABS: C ANCA <1:20 titer (Neg:<1:20); P ANCA <1:20 titer (Neg:<1:20)
[2018-03-06 16:16] LABS: ANA INTERP Negative (.)
[2018-03-08 10:14] LABS: ANTITHROMBIN III SEE SEPARATE REPORT; CARDIOLIPIN ANTIBODIES SEE SEPARATE REPORT
[2018-03-08 10:16] LABS: LUPUS ANTICOAGULANT SEE SEPARATE REPORT; PROTEIN C ACTIVITY SEE SEPARATE REPORT; PROTEIN S ACTIVITY SEE SEPARATE REPORT
== END 2018-03-03 14:55 | disposition home or self-care (01) | DRG 65 ==
LOC: ER 20:17 → 5 SOUTH 23:40
PROVIDERS: ADMIT Internal Medicine; ATTEND Internal Medicine
DX: I63.9 Cerebral infarction, unspecified (principal); I67.4 Hypertensive encephalopathy; I45.10 Unspecified right bundle-branch block; E78.00 Pure hypercholesterolemia, unspecified; R26.9 Unspecified abnormalities of gait and mobility; I10 Essential (primary) hypertension; I25.10 Atherosclerotic heart disease of native coronary artery without angina pectoris; E78.5 Hyperlipidemia, unspecified; Z82.49 Family history of ischemic heart disease and other diseases of the circulatory system; Z95.5 Presence of coronary angioplasty implant and graft; Z82.0 Family history of epilepsy and other diseases of the nervous system
CPT/HCPCS: 36415; 70450; 70496; 70498; 70549; 70551; 80048; 80061; 80076; 81001; 82607; 82962; 83036; 83880; 84439; 84443; 84484; 85025; 85300; 85302; 85306; 85610; 85651; 85730; 86021; 86038; 86140; 86147; 90471; 90756; 93005; 93306; A9585; J1650; Q9967; 92610; 99285-25; Q2035